=== PATIENT | male | born 1980 | race Caucasian/White ===

== ENCOUNTER 2016-07-26 16:20 | Emergency (ER) | payer OTHER ==
[2016-07-26 16:36] VITALS: BP 109/66
--- NOTE | 2016-07-26 16:49 | UC ---
Headache HPI - HPI Summary HPI Summary: Currently headache-free. Has noticed increase in migraine/headache frequency in recent days, in the past when this happened pt had luck with taking muscle relaxers at bedtime because his pain seems to come from a tight muscle in his upper back. Denies any neurological changes, visual changes, or muscular weakness. - History Of Current Complaint Chief Complaint: UC Stated Complaint: HEADACHE Time Seen by Provider: 07/26/16 16:39 Hx Obtained From: Patient Onset/Duration: Gradual Onset, Lasting Days, Lasting Weeks Onset Of Symptoms: Gradual Currently Pain Is: Current Pain Scale(0-10)= - 0 Timing: Intermittent, Lasting:, Hours Character: Dull, Throbbing, Typical Headache, Migraine Aggravating Factor: Nothing Allevating Factors: Medication Associated Signs And Symptoms: Negative: Dizziness, Seizure, Nausea, Vomiting, Fever, Neck Stiffness, Decreased LOC, Visual Changes - Allergies/Home Medications Allergies/Adverse Reactions: Allergies Allergy/AdvReac Type Severity Reaction Status Date / Time Aspirin Allergy Difficulty Verified 07/26/16 16:30 Breathing/Wheezing Home Medications: Home Medications Naproxen TAB* [Naprosyn TAB*] 500 mg PO BID PRN 07/26/16 [History Confirmed ] SUMAtriptan TAB* [Imitrex TAB*] 100 mg PO DAILY PRN 07/26/16 [History Confirmed 07/26/16] PMH/Surg Hx/FS Hx/Imm Hx Neurological History Of: Reports: Migraine - Surgical History Surgical History: Yes Surgery Procedure, Year, and Place: appendectomy, nose surgery - Family History Known Family History: Positive: Hypertension - Social History Occupation: Employed Full-time Alcohol Use: Occasionally Substance Use Type: None Smoking Status (MU): Never Smoked Tobacco - Immunization History Most Recent Influenza Vaccination: none Review of Systems Constitutional: Negative Skin: Negative Eyes: Negative ENT: Negative Respiratory: Negative Cardiovascular: Negative Gastrointestinal: Negative Genitourinary: Negative Motor: Negative Neurovascular: Negative Musculoskeletal: Negative Neurological: Headache Psychological: Negative All Other Systems Reviewed And Are Negative: Yes Physical Exam Triage Information Reviewed: Yes Appearance: Well-Appearing, No Pain Distress, Well-Nourished Vital Signs: Initial Vital Signs Temp 98.4 F 07/26/16 16:32 Pulse 57 07/26/16 16:32 Resp 14 07/26/16 16:32 BP 109/66 07/26/16 16:32 Pulse Ox 96 07/26/16 16:32 Vital Signs Reviewed: Yes Eye Exam: Normal, Other - PERRL, EOM-I Eyes: Positive: Conjunctiva Clear ENT Exam: Normal ENT: Positive: Normal ENT inspection, Hearing grossly normal, Pharynx normal, TMs normal Dental Exam: Normal Neck exam: Normal Neck: Positive: Supple, Nontender, No Lymphadenopathy Respiratory Exam: Normal Respiratory: Positive: Chest non-tender, Lungs clear, Normal breath sounds, No respiratory distress, No accessory muscle use Cardiovascular Exam: Normal Cardiovascular: Positive: RRR, No Murmur Musculoskeletal Exam: Normal Neurological Exam: Normal Psychological Exam: Normal Skin Exam: Normal Headache Course/Dx - Differential Dx/Diagnosis Provider Diagnoses: migraine headaches Discharge - Discharge Plan Condition: Stable Disposition: HOME Prescriptions: Cyclobenzaprine TAB* [Flexeril TAB*] 10 mg PO BEDTIME PRN #20 tab PRN Reason: Pain Patient Education Materials: Migraine Headache (ED) Additional Instructions: Please follow up with your originally prescribing physician if you continue to have worsening or [id number] headaches.
== END 2016-07-26 16:51 | disposition home or self-care (01) ==
LOC: UCEAST 16:20
DX: G43.909 Migraine, unspecified, not intractable, without status migrainosus (principal); Z88.6 Allergy status to analgesic agent
CPT/HCPCS: 99212; G0463